=== PATIENT | female | born 1990 | race Caucasian/White ===

== ENCOUNTER 2025-04-30 08:10 | Outpatient (REF) | payer BC, SELFPAY ==
--- NOTE | 2025-04-30 08:16 | ECG_ITS ---
Test Reason : qtc check Blood Pressure : */* mmHG Vent. Rate : 88 BPM Atrial Rate : 88 BPM P-R Int : 126 ms QRS Dur : 86 ms QT Int : 346 ms P-R-T Axes : 70 77 41 degrees QTcB Int : 418 ms Normal sinus rhythm with sinus arrhythmia Normal ECG No previous ECGs available Referred By: Renetta Guadarrama Electronically Signed By: Adrian Daly
--- OUTSIDE RECORDS SUMMARY | 2025-04-30 08:24 | XMS_ITS | Encounter Summary ---
Author Organization [facility] Address [address] [facility] [address] [place] [address] Care Team Providers Care Qa Lead Name Role Phone Augusto Guillen DMD Primary Care Provider Unava ilable Augusto Guillen DMD Unavailable Unavailable Paras Garcia PA-C Primary Care Provider [phone] Encounter Details Date Type Department Care Team (Latest Contact Info) Description 12/24/2020 Abstract [facility] CONVERSION[facility] Dental, Provider, DDS Social History Tobacco Use Types Packs/Day Years Used Date Smoking Tobacco: Never Assessed Comments Unknown Sex and Gender Information Value Date Recorded Sex Assigned at Not on file Legal Sex Female 8:39 PM EST Gender Identity Other 05/27/2022 8:39 PM EST Sexual Orientation Bisexual 05/27/2022 8: 39 PM EST documented as of this encounter Plan of Treatment Not on file documented as of this encounter Visit Diagnoses Not on filedocumented in this encounter Care Teams Qa Lead Relationship Specialty Start Date End Date Augusto Guillen DMD PCP - General Dentist 05/13/22 06/13/22 Paras Garcia PA-C [address] [place] [id number] PCP - General Family Medicine 11/06/23 Augusto Guillen DMD Dentist 06/14/22 documented as of this encounter
--- OUTSIDE RECORDS SUMMARY | 2025-04-30 08:24 | XMS_ITS | Encounter Summary ---
Author Organization [facility] Address [address] [facility] [address] [place] [phone] Phone Care Team Providers Care Histologist Name Role Phone Cee Chang INCOME TAX ADMINISTRATOR Primary Care Provider Raquel Clancy DO Primary Care Provider [phone] [place] Raquel Viv DO Primary Care Provider [phone] AstonRaquel DO Unavailable [phone] Zoraida Bonilla CNP Primary Care Provider Encounter Details Date Type Department Care Team (Late st Contact Info) Description 01/09/2020 Transcribe Orders [facility] [address] [place] [address] [phone] Gianna Chung, DO [address] [place] [address] Social History Tobacco Use Types Packs/Day Years Used Date Smoking Tobacco: Never Assessed Comments Unknown Sex and Gender Information Value Date Recorded Sex Assigned at Female 09/27/2022 3:57 PM EDT Legal Sex X 08/21/2023 2:20 PM EST Gender Identity Non-binary 11/03/2023 8:47 AM EDT Sexual Orientation Queer 11/03/2023 8: 47 AM EDT documented as of this encounter Plan of Treatment Upcoming Encounters Date Type Department Care Team (Late st Contact Info) Description 05/19/2025 9:30 AM EST Telemedicine [facility] [address] [place] [phone] Zoraida Bonilla, [employer] [address] [place] [phone] documented as of this encounter Visit Diagnoses Not on filedocumented in this encounter Additional Health Concerns Infection Onset Date Last Indicated Resolved Time CoV-Risk 06/04/2020 06/05/2020 06/18/2020 1:24 AM EST documented as of this encounter Care Teams Histologist Relationship Specialty Start Date End Date Cee Chang NP [address] [employer] [place] [address] PCP - General Family Medicine 08/02/18 09/26/22 Raquel Clancy DO [address] [place] [phone] PCP - General Family Medicine 09/27/22 11/26/22 Raquel Clancy DO [address] [place] [phone] PCP - General Family Medicine 11/27/22 02/29/24 Zoraida Bonilla CNP [address] [place] [phone] [email or web address] PCP - General 03/01/24 Raquel Clancy DO [address] [place] [phone] Family Medicine 11/27/22 documented as of this encounter Additional Source Comments The information contained in this document represents components of the legal health record. It is not the complete legal health record.[facility]
--- OUTSIDE RECORDS SUMMARY | 2025-04-30 08:24 | XMS_ITS | Clinical Summary ---
Author Organization [employer] [facility] Address [address] [facility] [address] [place] [address] Care Team Providers Care Medical Front Desk Coordinator Name Role Phone MindyLoisberny DMD Unavailable Unavailable Paras Garcia PA-C Primary Care Provider [phone] Allergies Active Allergy Reactions Criticality Noted Date Comments Escitalopram 07/20/2022 Sexual side effects Willard 07/20/2022 Nausea, interfered with sleep Karl Flavoring Agent (Non-Screening) 07/20/2022 Sertraline Diarrhea 07/20/2022 Bupropion Anxiety Low 07/20/2022 Immunizations Immunization Administration Dates Next Due Influenza, IIV3, injectable 05/02/2021,1 ,03/31/2019,2017 Moderna Covid-19 Vaccine 12+ 06/04/2021,08/18/19 21,07/21/2020 Pfizer Covid-19 Vaccine 12+ Bivalent 03/28/2022 Tdap 10/23/2018 Social History Tobacco Use Types Packs/Day Years Used Date Smoking Tobacco: Never Assessed Comments Unknown Sex and Gender Information Value Date Recorded Sex Assigned at Not on file Legal Sex Female 8:39 PM EST Gender Identity Other 05/27/2022 8:39 PM EST Sexual Orientation Bisexual 05/27/2022 8: 39 PM EST Plan of Treatment Health Maintenance Due Date Last Done Comments Depression Screening 1991 Disability Screening 1991 Alcohol/Substance Use Screening 2003 Tobacco Screening 2003 Family Planning (PISQ) 12/16/2006 HPV Vaccines (1 - 3-dose series) 12/16/2006 Hepatitis B Vaccines (1 of 3 - 19+ 3-dose series) 12/16/2010 Pap Smear 12/16/2012 Cervical Cancer Screening 12/16/2021 HPV/Cotest 12/16/2021 COVID-19 Vaccine ( season) 2025 03/28/2022, 06/04/2021, 08/18/2020, Additional history exists Influenza Vaccine (#1) 2025 , 04/17/2020, 03/31/2019, Additional history exists DTaP/Tdap/Td Vaccines (2 - Td or Tdap) 10/23/2028 10/23/2018 Zoster Vaccines (1 of 2) 12/16/2041 RSV Patients and Patients Aged 60 years or older (1 - 1-dose 75+ series) 12/16/2066 HIB Vaccines Aged Out No longer eligi ble based on patient's age to complete this topic Hepatitis A Vaccines Aged Out No long er eligible based on patient's age to complete this topic IPV Vaccines Aged Out No longer eligi ble based on patient's age to complete this topic Meningococcal B Vaccine Aged Out No l onger eligible based on patient's age to complete this topic Meningococcal Vaccine Aged Out No marilu deepthi eligible based on patient's age to complete this topic Pneumococcal Vaccine: Pediatrics (0 to 5 Years) and At-Risk Patients (6 to 49) Years Aged Out No longer eligible based on patient's age to complete this topic RSV under 20 months Aged Out No longe r eligible based on patient's age to complete this topic Rotavirus Vaccines Aged Out No longer eligible based on patient's age to complete this topic Care Teams Medical Front Desk Coordinator Relationship Specialty Start Date End Date Paras Garcia PA-C [address] [place] [address] PCP - General Family Medicine 11/06/23 Augusto Guillen DMD Dentist 06/14/22
--- OUTSIDE RECORDS SUMMARY | 2025-04-30 08:24 | XMS_ITS | Encounter Summary ---
Author Organization [employer] [facility] Address [address] [facility] [address] [place] [address] Care Team Providers Care Drilling Manager Name Role Phone Augusto Guillen DMD Primary Care Provider Unava ilable Augusto Guillen DMD Unavailable Unavailable Paras Garcia PA-C Primary Care Provider [phone] Encounter Details Date Type Department Care Team (Latest Contact Info) Description 09/16/2019 Abstract [facility] CONVERSIONS Dental, Provider, DDS Social [...] on filedocumented in this encounter Care Teams Drilling Manager Relationship Specialty Start Date End Date Augusto Guillen DMD PCP - General Dentist 05/13/22 06/13/22 Paras Garcia PA-C [address] [place] [id number] PCP - General Family Medicine 11/06/23 Augusto Guillen DMD Dentist 06/14/22 documented as of this encounter
--- OUTSIDE RECORDS SUMMARY | 2025-04-30 08:25 | XMS_ITS | Clinical Summary ---
Author Organization [facility] Address [address] [facility] [address] [place] [phone] Phone Care Team Providers Care Operating System Designer Name Role Phone Raquel Clancy DO Unavailable [phone] Zoraida Bonilla CNP Primary Care Provider Allergies Active Allergy Reactions Criticality Noted Date Comments Karl Itching 07/21/2020 Medications SPRAVATO 84 mg (28 mg x 3) nasal spray 11/24/19 23 Active tiZANidine (ZANAFLEX) 2 MG tablet TAKE 1 TO 2 TABLETS BY MOUTH EVERY DAY AT BEDTIME NEEDED FOR NECK SPASM 180 tablet 1 11/06/19 25 Active atomoxetine (STRATTERA) 40 MG capsuleIndicatio ns:Attention deficit hyperactivity disorder (ADHD), predominantly inattentive type TAKE 1 CAPSULE (40 MG TOTAL) BY MOUTH DAILY. 90 capsule 01/17/20 25 Active JULIO, 28, 3-0.02 mg per tabletIndication s:Menstrual suppression TAKE 1 TABLET BY MOUTH EVERY MORNING. SKIP INACTIVE PILLS. 84 tablet 1 01/21/20 25 Active testosterone (ANDROGEL) 20.25 mg/1.25 gram (1.62 %) transdermal gel pumpIndications: Gender incongruence APPLY 1 PUMP DAILY DIRECTED 75 g 01/29/20 25 Active cimetidine (TAGAMET) 400 MG tabletIndication s:Gastroesophage al reflux disease, unspecified whether esophagitis present Take 0.5 tablets (200 mg total) by mouth 2 (two) times a day. 60 tablet 02/01/20 25 Active Additional Information Patient not taking.Reported on 04/18/2025 ARIPiprazole (ABILIFY) 5 MG tablet Take 1 tablet by mouth every morning. 04/15/20 Active traZODone (DESYREL) 100 MG tabletIndication s:Depression, unspecified depression type TAKE 1 TABLET BY MOUTH NIGHTLY AT BEDTIME. 90 tablet 04/25/20 25 Active traZODone (DESYREL) 100 MG tabletIndication s:Depression, unspecified depression type Take 1 tablet (100 mg total) by mouth nightly at bedtime. 90 tablet 1 09/04/19 25 2024 Discontinued nitrofurantoin (MACROBID) 100 MG capsule Take 1 capsule (100 mg total) by mouth 2 (two) times a day for 5 days. 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 Resolved Problems Problem Noted Date Diagnosed Date Resolved Date Increased risk for hereditary cancer syndrome 04/26/20 24 01/29/2025 Encounters Date Type Department Care Team Description 04/25/[address] [address] Zoraida Bonilla CNP Medication Refill 04/18/2025 11:50 AM EDT Office Visit [facility] at [address] [address] Sissy Caicedo PA-C Dysuria (Primary Dx); Urinary tract infection without hematuria, site unspecified 03/27/2025 2:30 PM EDT Nurse Only [address] [address] Need for prophylactic vaccination and inoculation against influenza (Primary Dx); Need for COVID-19 vaccine; Encounter for administration of vaccine 03/26/2025 12:26 PM EDT - 03/26/2025 11:59 PM EDT Hospital Encounter [facility], [address] [address] Claudia Santana MD Discharge Disposition: Home or Self Care 03/12/2025 2:21 PM EDT - 03/12/2025 11:59 PM EDT Hospital Encounter [facility] [address] [address] Vesta Beltran, Claudia Camp MD Discharge Disposition: Home or Self Care 03/12/2025 Orders Only [address] [address] Claudia Santana MD Lymphadenitis (Primary Dx); Enlarged lymph nodes 01/29/2025 3:51 PM EDT - 01/29/2025 11:59 PM EDT Hospital Encounter [facility] [address] [address] Zoraida Bonilla CNP Discharge Disposition: Home or Self Care 01/29/2025 9:00 AM EDT Office Visit [address] [address] Zoraida Bonilla CNP Annual physical exam (Primary Dx); Routine screening for STI (sexually transmitted infection); Gender dysphoria; Gastroesophageal reflux disease, unspecified whether esophagitis present 01/29/[address] [address] Zoraida Bonilla CNP Med Change Request from Last 3 Months Immunizations Immunization Administration Dates Next Due COVID-19 (Pre-05/08) Moderna Vaccine, mRNA, PF 06/04/2021,08/18/2020,07/21/2020 COVID-19 (Pre-05/08) Pfizer Vaccine, Bivalent 12+ 03/28/2022 COVID-19 Pfizer Comirnaty Vaccine 12+ 03/27/2025 ,03/29/2024,04/14/2023 COVID-19, Unspecified Formulation 03/28/2022,06/2022 DTaP 01/20/1997, 5,07/14/1992,1991,02/28/1992 Hepatitis B, unspecified formulation 08/11/1999, 03/05/1999,01/28/1999 Hib, unspecified formulation 07/14/1992,04/16/19 92,02/28/1992 INFLUENZA, SPLIT VIRUS, TRIVALENT PF 03/27/2025, 04/16/2024 IPV 01/20/1997, 2,04/16/1992,1991 Influenza Quadrivalent Prese rvative Free IM 05/22/2018 Influenza Quadrivalent w/ Preservative IM 04/17/2020,04/17/2020,03/31/2019 Influenza, Unspecified Formulation 05/02,04/17/2020,03/31/2019,2017 MMR 01/20/1997,12/06/1994 Tdap 10/23/2018 Family History Medical History Relation Comments Diabetes type I Brother Heart attack Brother Hyperlipidemia Brother Colon cancer Father over 50 polyps r emoved Hyperlipidemia Father Prostate cancer Father Breast cancer Maternal Aunt Stroke Maternal Grandfather Breast cancer Maternal Grandmother Relation Status Comments Brother Father Alive Maternal Aunt Maternal Grandfather Maternal Grandmother Social History Tobacco Use Types Packs/Day Years Used Date Smoking Tobacco: Never Smokeless Tobacco: Never Tobacco Cessation:Counseling Given: Not Answered Alcohol Use Standard Drinks/Week Comments Yes 0 (1 standard drink = 0.6 oz pur e alcohol) 1-2 x per month Child or Family Care Answer Date Record ed Do you have problems with on e of the following making it difficult for you to work, study, or receive health care? No 06/13/2024 Education Answer Date Recorded Are you interested in help w ith more adult education (for example, completing high school, GED, job training, learning the [place] language, technical skills, or developing parenting skills)? No 06/13/2024 Are you concerned about learning? Not on file 06/13/2024 No 06/13/2024 Yes 06/13/2024 Food Answer Date Recorded Within the past 6 months we worried whether our food would run out before we got money to buy more. Never True 06/13/2024 Within the past 6 months the food we bought just didn't last and we didn't have enough money to get more. Never True Residential Stability Answer Date Recor ded What is your housing situation today? I have jaquelin sing 06/13/2024 How many times have you move d in the past 12 months? Zero (I did not move) 06/13/2024 Paying for Meds Answer Date Recorded Do you have trouble paying for medicines? No 06/13/2024 Paying Utility Bills Answer Date Record ed Do you have trouble paying your heating or elect ricity bill? No 06/13/2024 Transportation Answer Date Recorded Has the lack of transportati on kept you from medical appointments or from getting medications? No 06/13/2024 Unemployment Answer Date Recorded Are you currently unemployed or working on a part-time or temporary basis, and looking for work? No 06/13/2024 Digital Access Answer Date Recorded No 06/13/2024 Yes 06/13/2024 Do you have reliable internet access at home? Ye s 06/13/2024 Do you have a device (e.g., phone, tablet, computer) with a working camera? Yes 06/13/2024 Intimate Partner Violence Answer Date R ecorded Are you denied basic needs s uch as food, clothing, or medical care? No 06/13/2024 In the past 12 months have y ou been in a relationship with a person who hurts, threatens, or tries to control you? No 06/13/2024 Are you denied basic needs s uch as food, clothing, or medical care? No 06/13/2024 In the past 12 months have y ou been in a relationship with a person who hurts, threatens, or tries to control you? No 06/13/2024 Comments Unknown Sex and Gender Information Value Date Recorded Sex Assigned at Female 09/27/2022 3:57 PM EDT Legal Sex X 08/21/2023 2:20 PM EST Gender Identity Non-binary 11/03/2023 8:47 AM EDT Sexual Orientation Queer 11/03/2023 8: 47 AM EDT Last Filed Vital Signs Vital Sign Reading Time Taken Comments Blood Pressure 111/70 04/18/2025 12:50 PM EDT Pulse 74 04/18/2025 12:50 PM EDT Temperature 37 C (98.6 F) 04/18/2025 12:50 PM EDT Respiratory Rate 16 04/18/2025 12:50 PM EDT Oxygen Saturation 100% 04/18/2025 12:50 PM EDT Inhaled Oxygen Concentration - - Weight 61.2 kg (135 lb) 04/18/2025 12:50 PM EDT Height 162.6 cm (5' 4 ) 04/18/2025 12:50 PM EDT Body Mass Index 23.17 04/18/2025 12:50 PM EDT Plan of Treatment Upcoming Encounters Date Type Department Care Team (Late st Contact Info) Description 05/19/2025 9:30 AM EST Telemedicine [facility] [address] [place] [address] Zoraida Bonilla, GUSTAVO [address] [place] [address] [email or web address] Maintenance Due Date Last Done Comments HEPATITIS A VACCINES (1 of 2 - Risk 2-dose series) 12/16/2010 DEPRESSION SCREENING 01/29/2026 01/29/2025, 01/30/20 25 PAP SMEAR 10/11/2028 Postponed from 12/16/2012 (Not Clinically Appropriate) Adult Td,Tdap Booster 10/23/2028 10/23/2018 HIB VACCINES Aged Out 07/14/1992, 07/1991, 02/28/1992 No longer eligible based on patient's age to complete this topic HEPATITIS C SCREENING Completed 01/29/2025, 025 HIV ONE-TIME SCREENING (18-65 YEARS) Completed 01/29/2025 COVID-19 VACCINE Completed 03/27/2025, , 04/14/2023, Additional history exists INFLUENZA VACCINE Completed 03/27/2025, , 05/02/2021, Additional history exists SMOKING STATUS SCREENING (Once After 26 Yrs) Completed 04/18/2025 MENINGOCOCCAL VACCINES (ACWY) Aged Out No longer eligible based on patient's age to complete this topic MENINGOCOCCAL VACCINES (B) Aged Out N o longer eligible based on patient's age to complete this topic PNEUMOCOCCAL VACCINES (0-49 years) Aged Out No longer eligible based on patient's age to complete this topic Medical Devices Not on file Procedures Procedure Name Priority Date/Time Associated Diagnosis Comments URINE CULTURE Routine 04/18/2025 1:43 PM EDT Dysuria POCT URINE DIPSTICK Routine 04/18/2025 1 1:58 AM EDT US SOFT TISSUES OF HEAD AND NECK (LYMPH NODE SURVEY) Routine 03/26/2025 12:57 PM EDT Enlarged lymph nodes CBC AND DIFFERENTIAL Routine 03/12/2025 2:22 PM EDT Lymphadenitis SYPHILIS ANTIBODY SCREEN ASSAY Routine 01/29/2025 3:52 PM EDT Routine screening for STI (sexually transmitted infection) TESTOSTERONE, TOTAL Routine 01/29/2025 3 :52 PM EDT Gender dysphoria CBC Routine 01/29/2025 3:52 PM EDT Gender dysphoria HIV-1/2 ANTIGEN/ANTIBODY Routine 01/29/2025 3:52 PM EDT Routine screening for STI (sexually transmitted infection) CHLAMYDIA TRACHOMATIS AND NEISSERIA GONORRHOEAE NUCLEIC ACID DETECTION Routine 01/29/2025 3:52 PM EDT Routine screening for STI (sexually transmitted infection) HEPATITIS C VIRAL LOAD (PCR) Routine 01/29/2025 3:52 PM EDT Routine screening for STI (sexually transmitted infection) from Last 3 Months Results * (ABNORMAL) Urine Culture (04/18/2025 1:43 PM EDT) Special Requests None 04/18/2025 1:43 PM EDT [facility] Urine Culture 10,000 to 100,000 colony forming units per mL MIXED RICHY (3 OR MORE COLONY TYPES) Culture indicates contamination . Please resubmit if necessary.(A) 04/20/2025 10:39 AM EDT [facility] Urine (Urine) 04/18/2025 1:4 3 PM EDT 04/18/2025 6:05 PM EDT us iSssy Caicedo PA-C MICROBIOLOGY - GENERAL FATOU MARTINEZ Final Result [facility] [address] [place], [place] [id number] * POCT Urine Dipstick (Automated) (04/18/2025 11:58 AM EDT) COLOR Yellow [facility] TURBIDITY Clear [facility] GLUCOSE, POCT Negative [facility] KETONE, POCT Negative [facility] OCCULT BLOOD, POCT Negative [facility] SPECIFIC GRAVITY, POCT 1.015 [facility] ALBUMIN, POCT Negative [facility] Bili Negative [facility] Urobilinogen 0.2 [facility] NITRITE, POCT Negative [facility] PH, POCT 7.0 [facility] WBC SCREEN, POCT Negative [employer] [facility] 04/18/2025 11:5 8 AM EDT 04/18/2025 12:00 PM EDT Sissy Caicedo PA-C POINT OF CARE TEST ORDERABL ES Final Result [facility] [address] [place] [address], [facility] [phone] * US Soft Tissues of Head and Neck (Lymph Node Survey) (03/26/2025 12:57 PM EDT) Anatomical Region Laterality Modality Neck, Head Ultrasound 03/26/2025 1:49 PM EDT Impressions 03/26/2025 1:50 PM EDT Small, benign-appearing lymph node in the region of clinical concern. Narrative 03/26/2025 1:50 PM EDT US SOFT TISSUES OF HEAD AND NECK (LYMPH NODE SURVEY) Referring clinician's provided indication for this examination in Epic: Lymphadenopathy, neck TECHNIQUE: Ultrasound soft tissue of the head and neck. COMPARISON: None FINDINGS: Superficial scanning was performed of the left neck palpable lump. Lymph Nodes: In the region of clinical concern, there is a small, morphologically benign-appearing lymph nodes measuring 1.4 x 0.3 x 0.8 cm. Other Findings: No mass or fluid collection. Procedure Note John Cordero MD - 03/26/2025 US SOFT TISSUES OF HEAD AND NECK (LYMPH NODE SURVEY) Referring clinician's provided indication for this examination in Epic:Lymphadenopathy, neck TECHNIQUE: Ultrasound soft tissue of the head and neck. COMPARISON: None FINDINGS: Superficial scanning was performed of the left neck palpable lump. Lymph Nodes: In the region of clinical concern, there is a small,morphologically benign-appearing lymph nodes measuring 1.4 x 0.3 x 0.8cm. Other Findings: No mass or fluid collection. IMPRESSION: Small, benign-appearing lymph node in the region of clinical concern. us Claudia Santana MD IMG US HEAD/NECK NON THYROI D Final Result * (ABNORMAL) CBC and differential (03/12/2025 2:22 PM EDT) WBC 9.12 4.00 - 11.00 K/uL [facility] RBC 4.51 4.50 - 5.20 M/uL [facility] Comment: NOTE: This patient has registered with Legal Sex X. Sex specific reference ranges and abnormal flags may not apply to these results. Further interpretation and clinical correlation required. Reference Ranges: Male 18Y+: 4.50-5.90 Female 18Y+: 4.00-5.20 HGB 14.0 13.5 - 16.0 g/dL [facility] Comment: NOTE: This patient has registered with Legal Sex X. Sex specific reference ranges and abnormal flags may not apply to these results. Further interpretation and clinical correlation required. Reference Ranges: Male 18Y+: 13.5-17.5 Female 18Y+: 12.0-16.0 HCT 40.6(L) 41.0 - 46.0 % [facility] Comment: NOTE: This patient has registered with Legal Sex X. Sex specific reference ranges and abnormal flags may not apply to these results. Further interpretation and clinical correlation required. Reference Ranges: Male 18Y+: 41.0-53.0 Female 18Y+: 36.0-46.0 PLT 291 150 - 450 K/uL [facility] MCV 90.0 80.0 - 100.0 fL [facility] MCH 31.0 27.0 - 31.0 pg [facility] MCHC 34.5 32.0 - 36.0 g/dL [facility] RDW 11.5 11.5 - 14.5 % [facility] MPV 10.7 8.4 - 12.0 fL [facility] NRBC 0.00 0.00 /100 WBCs [facility] ABSOLUTE NRBC 0.00 0.00 K/uL [facility] DIFF METHOD Auto [facility] NEUTS 68.1 48.0 - 76.0 % [facility] LYMPHS 26.2 18.0 - 41.0 % [facility] MONOS 4.8 4.0 - 11.0 % [facility] EOS 0.2 0.0 - 5.0 % [facility] BASOS 0.4 0.0 - 1.5 % [facility] Granulocytes, immature (%) 0.3 0.0 - 0.9 % [facility] ABSOLUTE NEUTS 6.20 1.92 - 7.60 K/uL [facility] ABSOLUTE LYMPHS 2.39 0.72 - 4.10 K/uL [facility] ABSOLUTE MONOS 0.44 0.16 - 1.10 K/uL [facility] ABSOLUTE EOS 0.02 0.00 - 0.50 K/uL [facility] ABSOLUTE BASOS 0.04 0.00 - 0.15 K/uL [facility] Granulocytes, immature 0.03 0.00 - 0.09 K/uL [facility] Blood 03/12/2025 2:22 PM EDT 03/12/2025 2:24 PM EDT us Claudia Santana MD LAB BLOOD ORDERABLES Final Result [facility] [address] [place] [address] * Chlamydia trachomatis and Neisseria gonorrhoeae Nucleic Acid Amplification (01/29/2025 3:52 PM EDT) [facility] CHLAMYDIA TRACHOMATIS Not Detected Not Detected [facility] NEISERIA GONORRHOEAE Not Detected Not Detected [facility] SPECIMEN TYPE URINE [facility] Urine (Urine) 01/29/2025 3:5 2 PM EDT 01/29/2025 4:07 PM EDT Zoraida Bonilla FUNCTIONAL MENTAL DISABILITY TEACHER NON CULTURE MICROBIOLO GY Final Result Performing Organization Address [facility]/ZIP Co de Phone Number [address] [address] * HIV-1/2 antigen/antibody (01/29/2025 3:52 PM EDT) [facility] HIV-1/2 Antigen/Antibo dy NON-REACTI VE [facility] Blood 01/29/2025 3:52 PM EDT 01/29/2025 4:01 PM EDT Zoraida Silvia Bonilla FUNCTIONAL MENTAL DISABILITY TEACHER LAB BLOOD ORDERABLES F inal Result Performing Organization Address [facility]/ZIP Co de Phone Number [address] [address] * Syphilis antibody screen (01/29/2025 3:52 PM EDT) [facility] RPR NON-REACTIV E NON-REACTI VE [facility] Blood 01/29/2025 3:52 PM EDT 01/29/2025 4:01 PM EDT Zoraida Silvia Bonilla FUNCTIONAL MENTAL DISABILITY TEACHER LAB BLOOD ORDERABLES F inal Result Performing Organization Address [facility] Co de Phone Number [address] [address] * Hepatitis C viral load (PCR) (01/29/2025 3:52 PM EDT) [facility] HCV RNA DETECT/QNT Undetected Undetected IU/mL [place] [facility] Comment: (NOTE) Result in log IU/mL is Undetected. ADDITIONAL INFORMATION The quantification range of this assay is 15 to 100,000,000 IU/mL (1.18 log to 8.00 log IU/mL). Testing was performed using the chun HCV test ([employer] Blood (Blood) 01/29/2025 3:5 2 PM EDT 01/29/2025 4:01 PM EDT us Zoraida Silvia Bonilla FUNCTIONAL MENTAL DISABILITY TEACHER NON CULTURE MICROBIOLO GY Final Result [facility] [facility] [address] [place] [address] * (ABNORMAL) CBC (01/29/2025 3:52 PM EDT) WBC 8.61 4.00 - 11.00 K/uL [facility] RBC 4.63 4.50 - 5.20 M/uL [facility] Comment: NOTE: This patient has registered with Legal Sex X. Sex specific reference ranges and abnormal flags may not apply to these results. Further interpretation and clinical correlation required. Reference Ranges: Male 18Y+: 4.50-5.90 Female 18Y+: 4.00-5.20 HGB 14.5 13.5 - 16.0 g/dL [facility] Comment: NOTE: This patient has registered with Legal Sex X. Sex specific reference ranges and abnormal flags may not apply to these results. Further interpretation and clinical correlation required. Reference Ranges: Male 18Y+: 13.5-17.5 Female 18Y+: 12.0-16.0 HCT 41.7 41.0 - 46.0 % [facility] Comment: NOTE: This patient has registered with Legal Sex X. Sex specific reference ranges and abnormal flags may not apply to these results. Further interpretation and clinical correlation required. Reference Ranges: Male 18Y+: 41.0-53.0 Female 18Y+: 36.0-46.0 PLT 279 150 - 450 K/uL [facility] MCV 90.1 80.0 - 100.0 fL [facility] MCH 31.3(H) 27.0 - 31.0 pg [facility] MCHC 34.8 32.0 - 36.0 g/dL [facility] RDW 11.6 11.5 - 14.5 % [facility] MPV 10.3 8.4 - 12.0 fL [facility] NRBC 0.00 0.00 /100 WBCs [facility] ABSOLUTE NRBC 0.00 0.00 K/uL [facility] Blood 01/29/2025 3:52 PM EDT 01/29/2025 4:01 PM EDT Zoraida Bonilla [facility] LAB BLOOD ORDERABLES F inal Result Performing Organization Address [facility]/ZIP Co de Phone Number [address] [address] * Testosterone, total (01/29/2025 3:52 PM EDT) TESTOSTERONE 373 ng/dL [facility] Comment: NOTE: This patient has registered with Legal Sex X. Sex specific reference ranges and abnormal flags may not apply to these results. Further interpretation and clinical correlation required. Interpretation: FEMALE:<50 Interpretation: MALE:[phone] Blood 01/29/2025 3:52 PM EDT 01/29/2025 4:01 PM EDT Zoraida Bonilla [facility] LAB BLOOD ORDERABLES F inal Result [address] [address] from Last 3 Months [facility] [place] [address] [place] [address] [address] [place] [address] [address] [place] [address] [address] [place] [address] PPO EPO [facility]PO [facility] [place] [address] [place] [address] [place] [address] [place] [address] [facility] Care Teams Operating System Designer Relationship Specialty Start Date End Date Zoraida Bonilla CNP [address] [place] [id number] PCP - General 03/01/24 Raquel Clancy DO [address] [place] [id number] Family Medicine 11/27/22 Additional Source Comments The information contained in this document represents components of the legal health record. It is not the complete legal health record.[facility]
--- OUTSIDE RECORDS SUMMARY | 2025-04-30 08:25 | XMS_ITS | Encounter Summary ---
Author Organization [facility] Address [address] [facility] [address] [place] [phone] Phone Care Team Providers Care General Sales Manager Name Role Phone AstonRaquel Primary Care Provider [phone] AstonRaquel DO Primary Care Provider [phone] Raquel Clancy DO Unavailable [phone] Zoraida Bonilla CNP Primary Care Provider Encounter Details Date Type Department Care Team (Late st Contact Info) Description 09/27/2022 Procedure Pass [facility], Ct Scan - [address] [id number] Social History Tobacco Use Types Packs/Day Years Used Date Smoking Tobacco: Never Smokeless Tobacco: Never Alcohol Use Standard Drinks/Week Comments Never 0 (1 standard drink = 0.6 oz pur e alcohol) Comments Unknown Sex and Gender Information Value Date Recorded Sex Assigned at Female 09/27/2022 3:57 PM EDT Legal Sex X 08/21/2023 2:20 PM EST Gender Identity Non-binary 11/03/2023 8:47 AM EDT Sexual Orientation Queer 11/03/2023 8: 47 AM EDT documented as of this encounter Functional Status * Calculated C-SSRS Risk Score (Lifetime/Recent) Answer Date of Assessment Author No Risk Indicated 09/27/2022 3:57 PM EDT Kiarra Ortiz, RN * [place] Suicide Severity Rating Scale (Screener/Recent Self-Report) Question Answer Date of Assessment Author 1. Wish to be (Past 1 Month) No 09/27/2022 3:57 PM EDT Ilda Thompson RN 2. Non-Specific Active Suicidal Thoughts (Past 1 Month) No 09/27/2022 3:57 PM EDT Ilda Thompson RN 6. Suicidal Behavior (Lifetime) No 09/27/2022 3:57 PM EDT Ilda Thompson RN documented as of this encounter Plan of Treatment Upcoming Encounters Date Type Department Care Team (Late st Contact Info) Description 05/19/2025 9:30 AM EST Telemedicine [facility] [address] [place] [address] Zoraida Bonilla CNP [address] [place] [phone] [email or web address] documented as of this encounter Visit Diagnoses Not on filedocumented in this encounter Care Teams General Sales Manager Relationship Specialty Start Date End Date Raquel Clancy DO [address] [place] [address] PCP - General Family Medicine 09/27/22 11/26/22 Raquel Clancy DO [address] [place] [id number] PCP - General Family Medicine 11/27/22 02/29/24 Zoraida Bonilla CNP [address] [place] [id number] PCP - General 03/01/24 Raquel Clancy DO [address] [place] [address] Family Medicine 11/27/22 documented as of this encounter Additional Source Comments The information contained in this document represents components of the legal health record. It is not the complete legal health record.[facility]
--- OUTSIDE RECORDS SUMMARY | 2025-04-30 08:26 | XMS_ITS | Encounter Summary ---
Author Organization [facility] Address [address] [employer] [facility] [address] [place] [phone] Phone Care Team Providers Care Watch Parts Inspector Name Role Phone Raquel Clancy DO Unavailable [phone] Zoraida Bonilla CNP Primary Care Provider Reason for Visit * Reason Comments Medication Refill Encounter Details Date Type Department Care Team ([facility] st Contact Info) Description 04/25/2025 Refill [facility] [address] [place], [place] [id number] Zoraida Bonilla CNP [address] [place], [place] [phone] [email or web address] Medication Refill Social History Tobacco Use Types Packs/Day Years Used Date Smoking Tobacco: Never Smokeless Tobacco: Never Alcohol Use Standard Drinks/Week Comments Yes 0 [...] high school, GED, job training, learning the [place] language, technical skills, or developing parenting skills)? [...] your housing situation today? I have jaquelin vargas 06/13/2024 How many times have you move [...] 05/19/2025 9:30 AM EST Telemedicine [facility] [address] [place] [address] Zoraida Bonilla CNP [address] [place] [address] [email or web address] documented as of this encounter Visit Diagnoses Diagnosis Depression, unspecified depression type documented in this encounter Additional Health Concerns Assessment Noted Time PHQ-9 Depression Total Score: 7 01/30/20 9:58 AM EDT PHQ-2 Depression Total Score: 2 01/30/20 9:58 AM EDT documented as of this encounter Care Teams Watch Parts Inspector Relationship Specialty Start Date End Date Zoraida Bonilla CNP [address] [place] [address] [email or web address] PCP - General 03/01/24 Raquel Clancy DO [address] [place] [phone] Family Medicine 11/27/22 documented as of this encounter Additional Source Comments The information contained in this document represents components of the legal health record. It is not the complete legal health record.[facility]
[2025-04-30 08:43] LABS: MANUAL DIFF FLAG NO
[2025-04-30 09:22] LABS: Hematocrit 40.4 %; Hemoglobin 13.5 g/dl; Imm Gran Abs Auto 0.02 X10*3/uL (0.00-0.03); Imm Gran Pct Auto 0.4 % (0.0-0.4); Lymphocytes Absolute Auto 1.8 X10*3/uL; Mean Corpuscular HGB Conc 33.4 g/dl; Mean Corpuscular Hemoglobin 30.3 pg; Mean Corpuscular Volume 90.8 fL; NRBC Abs Auto 0.000 X10*3/uL (0.0-0.012); NRBC Pct Auto 0.0 /100WBC (0.0-0.2); Platelet Count 272 X10*3/uL; Red Blood Count 4.45 X10*6/uL; White Blood Count 5.2 X10*3/uL
[2025-04-30 10:33] LABS: Alanine Aminotransferase 15 U/L; Albumin Level 4.5 g/dL; Alkaline Phosphatase 44 U/L; Anion Gap 12; Aspartate Amino Transferase 26 U/L; Blood Urea Nitrogen 11 mg/dL; Calcium 9.5 mg/dL; Carbon Dioxide 26 mmol/L; Chloride 106 mmol/L; Cholesterol 257 mg/dL; Estimated Glomerular Filt Rate > 60; HDL Cholesterol 95 mg/dL; Iron 94 mcg/dL; Magnesium 1.9 mg/dL; Percent Iron Saturation 31 %; Potassium 4.1 mmol/L; Sodium 140 mmol/L; Total Iron Binding Capacity 308 mcg/dL; Total Protein 7.0 g/dL; Triglycerides 97 mg/dL; Unsaturated Iron Binding 214 ug/dL
[2025-04-30 10:38] LABS: Free T4 (Free Thyroxine) 0.96 ng/dL; Thyroid Stimulating Hormone 2.41 uIU/mL
[2025-04-30 10:51] LABS: Folate 9.1 ng/mL; Vitamin B12 214 pg/mL
== END 2025-04-30 08:11 | disposition home or self-care (01) ==
LOC: HO.LAB 08:10
PROVIDERS: Visit Provider Psychiatry & Neurology Psychiatry
DX: F41.1 Generalized anxiety disorder (principal); F39 Unspecified mood [affective] disorder; F90.9 Attention-deficit hyperactivity disorder, unspecified type; R94.31 Abnormal electrocardiogram [ECG] [EKG]; Z13.6 Encounter for screening for cardiovascular disorders; Z13.21 Encounter for screening for nutritional disorder; Z13.1 Encounter for screening for diabetes mellitus; Z13.0 Encounter for screening for diseases of the blood and blood-forming organs and certain disorders involving the immune mechanism
CPT/HCPCS: 36415; 80053; 80061; 82306; 82607; 82746; 83036; 83090; 83540; 83735; 83921; 84207; 84425; 84439; 84443; 85025; 85652; 93005

== ENCOUNTER → 2025-04-30 08:16 | Outpatient (BNV) | payer BC, SELFPAY | PROVIDERS: Visit Provider Internal Medicine Cardiovascular Disease | DX: Z13.6 Encounter for screening for cardiovascular disorders (principal) | CPT/HCPCS: 93010 ==

== ENCOUNTER → 2025-05-09 11:30 | Outpatient (BNV) | payer BC, SELFPAY | PROVIDERS: Visit Provider Psychiatry & Neurology Psychiatry | DX: F33.2 Major depressive disorder, recurrent severe without psychotic features (principal); F41.3 Other mixed anxiety disorders; F90.9 Attention-deficit hyperactivity disorder, unspecified type | CPT/HCPCS: 99214 ==

== ENCOUNTER 2025-05-15 11:15 | Outpatient (RCR) | payer BC, SELFPAY ==
[2025-04-25 11:06] VITALS: BP 120/68; PULSE 64; TEMP 36.8; BMI 23.5
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
--- NOTE | 2025-05-01 14:13 | HO.PHP ---
Clients case was opened and reviewed in teams.
--- NOTE | 2025-05-07 16:30 | HO.PHPPROGNO ---
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 Patient remains pleasant, polite and appropriate in groups and at program. Despite setbacks feels they are managing stress a little better than expected. Feels better able to tolerate and manage stressors on Concerta. Maybe it is for the best.. was a difficult work environment . Says she is looking into other jobs. Emotions better with ABilify at 2.5 mg. Will continue to work toward 3.5 and possibly 5 mg if needed Denies any SI for past few days depsite events. WIll start on B12 for deficiency Trazodone not well tolerated, has picked up the gabapentin but hadnt started on this but plans to tongiht. Continues on Spravato. Medication Compliance: Yes Side effects from medications: No Attending Groups: Yes Review of Systems Acute medical concerns: No Medical Review of Systems: unchanged Mental Status Exam Mental Status Exam Narrative: Alert, oriented, in no acute distress. Calm, cooperative, more engaging. No psychomotor agitation or neurovegetative retardation. Eye contact maintained. Mood less depressed, affect variable, brighter. Speech normal. Thought process linear, coherent. Thought content related to stressors, more future-oriented, denies hopelessness, denies SI or HI. No paranoia or delusional content elicited. No evidence of psychosis. Insight and judgment - fair but adequate. Diagnostics Vital Signs (24Hr): BMI result Body Mass Index 23.5 Assessment & Plan Assessment & Plan (1) MDD (major depressive disorder), recurrent severe, without psychosis: Status: Acute Code(s): F33.2 - Major depressive disorder, recurrent severe without psychotic features (2) Other mixed anxiety disorders: Status: Acute Code(s): F41.3 - Other mixed anxiety disorders (3) Attention-deficit hyperactivity disorder, unspecified type: Status: Acute Code(s): F90.9 - Attention-deficit hyperactivity disorder, unspecified type Plan continue PHP increase Abilify to 3.5 mg qd start guanfacine ER 1 mg qd in am continue Concerta 18 mg qam (prev dose 27 mg) off atemoxetine switching off trazodone and onto gabapentin for sleep, at 100-200 mg to start continue regular medications for now Routine lab work reviewed w patient - B12 deficiency level 214, will start B12 supplements 1000 mcg daily EKG, routine reviewed normal QTc, no abnormal findings Continue to monitor Patient educated on: diagnosis and medication risk/benefits Informed Consent: understands Reason for contiued partial hosp. stay Substantial Risk for: med/psych decompensation Certification I certify that partial hospital treatment is medically necessary due to the symptoms and problems resulting from the patient's mental illness and the failure to treat the patient at the partial hospital level of care would likely result in the patient requiring inpatient psychiatric care which could not be prevented at a less intensive level of care. Total time managing care of this patient today __30__ minutes. Discharge Plan Discharge Attending provider: Renetta Guadarrama Medications: New gabapentin 300 mg capsule 300 mg PO BEDTIME Qty: 30 0RF cyanocobalamin (vitamin B-12) 1,000 mcg capsule 1,000 mcg PO DAILY Qty: 30 1RF Continued cholecalciferol (vitamin D3) [Vitamin D3] 25 mcg (1,000 unit) Capsule 25 mcg PO DAILY omeprazole magnesium [Prilosec OTC] 20 mg Tablet,Delayed Release (Dr/Ec) 20 mg PO DAILY drospirenone-ethinyl estradiol [Catie (28)] 3-0.02 mg tablet 1 tab PO DAILY testosterone 20.25 mg/1.25 gram (1.62 %) gel in metered-dose pump 1 pump topical DAILY Spravato 84 mg (28 mg x 3) [place],Non-Aerosol See Rx Instructions .ROUTE .COMPLEX Rx Instructions: Q 2 weeks. Patient reports she goes to a clinic who administers this to them. methylphenidate HCl [Concerta] 18 mg tablet extended release 24hr 18 mg PO QAM Qty: 30 0RF Rx Instructions: Partial Fill upon patient request. For ADHD aripiprazole 2 mg tablet 2 mg PO BEDTIME Qty: 30 0RF Changed gabapentin 100 mg capsule 100 mg PO BID PRN (Reason: anxiety, sleep) Qty: 30 0RF guanfacine 1 mg tablet extended release 24 hr 1 mg PO DAILY PRN (Reason: anxiety) Qty: 14 0RF aripiprazole [Abilify] 5 mg Tablet 5 mg PO QAM Qty: 30 0RF Discontinued trazodone 100 mg tablet 100 mg PO BEDTIME atomoxetine 25 mg Capsule 25 mg PO DAILY Patient Education: ADHD in Adults (ED), ADHD in Adults (DC), Depression (DC), Anxiety (ED) Print Language: [place]
--- NOTE | 2025-05-09 13:20 | P.PNPSP_ITS ---
Subjective Subjective Date of Service: 05/09/25 Reason For Visit: MDD Interim History: Patient reports issues with medication changes. Started gabapentin at 100 mg at night Wed night, not effective. Increase to 200 mg last night. Less delay falling asleep, but was unable to stay asleep last night. More disrupted sleep than usual. Slept 4 hours. Started on COncerta 18 mg (was previously at 27 mg) . Is able to focus better but noticed more internal agitation, racing thoughts in the afternoon, mild but transient irritabilility. Denies SI, HI, AVH. Simultaneoulsy bumped up on Abliify. Although feels ABilify has been helpful and has thus far tolerated gentle titration, so is unclear which medicaiton causing issues. She david admits not eating lunch well here and is possible she is not eating adequately to tolerate the stimulant. She will plan to eat more at breakfast and will bring a lunch here to [facility] eating. Will increase gabapentin to 300 mg qhs but can take 25 mg trazodone after 2 hours if unable to sleep. WIll seek an extension for medication complications. Medication Compliance: Yes Side effects from medications: Yes (as noted) Attending Groups: Yes Review of Systems Acute medical concerns: No Mental Status Exam Mental Status Exam Narrative: Alert, oriented, in no acute distress. Calm, cooperative, engaged. Eye contact maintained. Mood anxious, irritable. affect anxious. Speech normal. Thought process linear, coherent. Thought content related to stressors, denies SI or HI. No paranoia or delusional content elicited. No evidence of psychosis. Insight and judgment - fair but adequate. Diagnostics Vital Signs (24Hr): BMI result Body Mass Index 23.5 Assessment & Plan Assessment & Plan (1) MDD (major depressive disorder), recurrent severe, without psychosis: Status: Acute Code(s): F33.2 - Major depressive disorder, recurrent severe without psychotic features (2) Other mixed anxiety disorders: Status: Acute Code(s): F41.3 - Other mixed anxiety disorders (3) Attention-deficit hyperactivity disorder, unspecified type: Status: Acute Code(s): F90.9 - Attention-deficit hyperactivity disorder, unspecified type Plan extend PHP continue Abilify 3.5 mg qd continue guanfacine ER 1 mg qd in continue Concerta 18 mg qam (prev dose 27 mg) will consider switching to short acting MPH if ER contributing to sleep issues off atemoxetine increase gabapentin to 300 mg qhs may take trazodone 25 mg qhs prn sleep for now as we titrate gabapentin continue regular medications Routine lab work as indicated EKG, routine for baseline QTc for medication considerations as indicated UDS as indicated MassPat reviewed Continue to monitor Patient educated on: diagnosis and medication risk/benefits Informed Consent: understands Reason for contiued partial hosp. stay Substantial Risk for: med/psych decompensation Certification I certify that partial hospital treatment is medically necessary due to the sy mptoms and problems resulting from the patient's mental illness and the failure to treat the patient at the partial hospital level of care would likely result in the patient requiring inpatient psychiatric care which could not be prevented at a less intensive level of care. Total time managing care of this patient today __30__ minutes. Discharge Plan Discharge Attending provider: Renetta Guadarrama Medications: New gabapentin 100 mg capsule 100 mg PO TID Qty: 30 0RF methylphenidate HCl [Concerta] 18 mg tablet extended release 24hr 18 mg PO QAM Qty: 14 0RF Rx Instructions: Partial Fill upon patient request. For ADHD aripiprazole 2 mg tablet 2 mg PO BEDTIME Qty: 30 0RF guanfacine 1 mg tablet extended release 24 hr 1 mg PO DAILY Qty: 14 0RF No Action trazodone 100 mg tablet 100 mg PO BEDTIME cholecalciferol (vitamin D3) [Vitamin D3] 25 mcg (1,000 unit) Capsule 25 mcg PO DAILY atomoxetine 25 mg Capsule 25 mg PO DAILY aripiprazole [Abilify] 5 mg Tablet 2.5 mg PO BEDTIME Rx Instructions: Patient prescribed 5 mg daily however she spoke to her prescriber and her prescriber reduced the dose to 2.5 mg as she has an issue regarding metabolizing this medication. omeprazole magnesium [Prilosec OTC] 20 mg Tablet,Delayed Release (Dr/Ec) 20 mg PO DAILY drospirenone-ethinyl estradiol [Catie (28)] 3-0.02 mg tablet 1 tab PO DAILY testosterone 20.25 mg/1.25 gram (1.62 %) gel in metered-dose pump 1 pump topical DAILY Spravato 84 mg (28 mg x 3) [place],Non-Aerosol See Rx Instructions .ROUTE .COMPLEX Rx Instructions: Q 2 weeks. Patient reports she goes to a clinic who administers this to them. Print Language: Ethiopian
--- NOTE | 2025-05-15 15:30 | P.PNPSP_ITS ---
Subjective Subjective Date of Service: 05/14/25 Reason For Visit: MDD Interim History: Patient seen for follow-up, anticipating discharge at the end of program today.? Regarding her stay at [facility]: I think it's been useful She has started back on Concerta and is findings that 18 mg is working well for her (her previous dose had been 27 mg, although she has been off the medications for a while. Feels she is doing well with Abilify, more stable, feels it works well for her. Currently at 3.5 mg qd (split 2.5 in AM/1 mg PM) and may take PRN 1 or 2.5 mg dose particularly around her menses, per patient preference. Reports no acute issues or concerns. Medication compliant, medications well- tolerated. Denies any adverse effects.? Mood is stable.? Denies any hopelessness or SI. Denies thoughts of harming self or others at this time. Denies any aggressive ideation or HI. Denies any paran oia or AH or VH. Sleep, appetite, energy stable. Mental Status Exam Mental Status Exam Narrative: Alert, oriented, in no acute distress. Calm, cooperative. Mood stable, affect appropriate. Speech normal. Thought process linear, coherent, more goal- directed. Thought content related to stressors, future-oriented, denies any helplessness, hopelessness or SI.? No aggressive ideation or HI. No paranoia or delusional content elicited. No evidence of psychosis. Insight and judgment fair-good. Diagnostics Vital Signs (24Hr): BMI result Body Mass Index 23.5 Assessment & Plan Assessment & Plan (1) MDD (major depressive disorder), recurrent severe, without psychosis: Status: Acute Code(s): F33.2 - Major depressive disorder, recurrent severe without psychotic features (2) Other mixed anxiety disorders: Status: Acute Code(s): F41.3 - Other mixed anxiety disorders (3) Attention-deficit hyperactivity disorder, unspecified type: Status: Acute Code(s): F90.9 - Attention-deficit hyperactivity disorder, unspecified type Plan Discharge from [facility] Continue regular medications? Refills sent to pharmacy Will defer further medication management to outpatient provider *Safety plan reviewed *Discharge diagnoses, treatment course, discharge plan have been reviewed with patient (including medication regime, medication management, potential side effects) as well as treatment rationale were also revisited *Discharge paperwork signed and given to patient, copy sent for scanning to chart Patient educated on: diagnosis and medication risk/benefits Informed Consent: understands Reason for contiued partial hosp. stay Substantial Risk for: stable for discharge Certification I certify that partial hospital treatment is medically necessary due to the symptoms and problems resulting from the patient's mental illness and the failure to treat the patient at the partial hospital level of care would likely result in the patient requiring inpatient psychiatric care which could not be prevented at a less intensive level of care. Total time managing care of this patient today __30__ minutes. Discharge Plan Discharge Attending provider: Renetta Guadarrama Medications: New gabapentin 300 mg capsule 300 mg PO BEDTIME Qty: 30 0RF cyanocobalamin (vitamin B-12) 1,000 mcg capsule 1,000 mcg PO DAILY Qty: 30 1RF Continued cholecalciferol (vitamin D3) [Vitamin D3] 25 mcg (1,000 unit) Capsule 25 mcg PO DAILY omeprazole magnesium [Prilosec OTC] 20 mg Tablet,Delayed Release (Dr/Ec) 20 mg PO DAILY drospirenone-ethinyl estradiol [Catie (28)] 3-0.02 mg tablet 1 tab PO DAILY testosterone 20.25 mg/1.25 gram (1.62 %) gel in metered-dose pump 1 pump topical DAILY Spravato 84 mg (28 mg x 3) Mozelle,Non-Aerosol See Rx Instructions .ROUTE .COMPLEX Rx Instructions: Q 2 weeks. Patient reports she goes to a clinic who administers this to them. methylphenidate HCl [Concerta] 18 mg tablet extended release 24hr 18 mg PO QAM Qty: 30 0RF Rx Instructions: Partial Fill upon patient request. For ADHD aripiprazole 2 mg tablet 2 mg PO BEDTIME Qty: 30 0RF Changed gabapentin 100 mg capsule 100 mg PO BID PRN (Reason: anxiety, sleep) Qty: 30 0RF guanfacine 1 mg tablet extended release 24 hr 1 mg PO DAILY PRN (Reason: anxiety) Qty: 14 0RF aripiprazole [Abilify] 5 mg Tablet 5 mg PO QAM Qty: 30 0RF Discontinued trazodone 100 mg tablet 100 mg PO BEDTIME atomoxetine 25 mg Capsule 25 mg PO DAILY Patient Education: ADHD in Adults (ED), ADHD in Adults (DC), Depression (DC), Anxiety (ED) Print Language: Macedonian
== END 2025-05-15 23:59 | disposition home or self-care (01) ==
LOC: HO.PHPA 11:15
PROVIDERS: Visit Provider Psychiatry & Neurology Psychiatry
DX: F33.2 Major depressive disorder, recurrent severe without psychotic features (principal); F41.3 Other mixed anxiety disorders; F90.9 Attention-deficit hyperactivity disorder, unspecified type; Z79.899 Other long term (current) drug therapy
CPT/HCPCS: 90791; 90853

== ENCOUNTER 2025-06-26 07:46 | Outpatient (AMB) | payer OTHER, SELFPAY ==
--- NOTE | 2025-06-26 07:49 | A.OFFPC_ITS ---
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 Medication List - Last Reconciled 06/26/25 by Guero Sebastian MD aripiprazole 2 mg PO BEDTIME cholecalciferol (vitamin D3) (Vitamin D3) 25 mcg PO DAILY cyanocobalamin (vitamin B-12) 1,000 mcg PO DAILY drospirenone-ethinyl estradiol 3-0.02 mg (Catie (28)) 1 tab PO DAILY esketamine (Spravato) Q 2 weeks. Patient reports she goes to a clinic who administers this to them. gabapentin 300 mg PO BEDTIME methylphenidate HCl ER (Concerta) 18 mg PO QAM omeprazole magnesium (Prilosec OTC) 20 mg PO DAILY testosterone 1 pump topical DAILY tizanidine 2 - 4 mg PO BEDTIME PRN Tobacco use date assessed: 06/26/25 Dental Screening Dental Screen Date: 06/26/25 Did you have a dental visit in the last 12 months?: Yes Did you have a dental problem in the last 6 months where you did not have access to dental care?: No Was dental information given to patient?: Patient has dentist HPI HPI Comments History of Present Illness Details The patient is a 34 year old non binary individual presenting for a new patient visit to establish primary care. Their last visit with a primary care provider was about three months ago, and she is changing providers due to a change in insurance. The patient has a history of depression and ADHD. She was recently in a partial hospitalization program in April for her psychiatric conditions and reports her mood has been good since medication adjustments were made there. She has a psychiatrist but may need to find a new one due to insurance issues. The patient had a mastectomy in 2014. She has a family history of colon cancer in her father, who was diagnosed in his 40s, prompting her to have a colonoscopy in late 2023, with a recommended follow-up in five years. Her brother had a myocardial infarction at age 35. Regarding health maintenance, her last Pap smear with HPV testing was two years ago, placing her on a five-year screening interval. Lab work from April 2024 showed a total cholesterol of 257 mg/dL and LDL of 143 mg/dL, which are concerns for the patient due to her family history. Medical History: - ADHD - Depression - History of partial psychiatric hospita lization in April - Anxiety - Insomnia - Neck spasms - Hypercholesterolemia - Allergy to nikki Surgical History: - Mastectomy in 2014 Medications: - Aripiprazole 2 mg daily for depression - Spravato (esketamine) every other week for depression - Gabapentin 300 mg for anxiety and slee p - Concerta 18 mg every morning for ADHD - Tizanidine 2-4 mg as needed for sleep and neck spasms - Testosterone pump, 1 pump (20.25 mg) d aily - Drospirenone/ethinyl estradiol (MARY 2 8) taken continuously for control and to stop menses Family History: - Brother had a myocardial infarction at age 35, noted to have elevated lipoprotein (a). - Father had colon cancer in his 40s. - Denies family history of sudden cardia c . - Denies family history of diabetes. Diagnostic Results: - Laboratory studies (April): Total ch olesterol 257 mg/dL, LDL 143 mg/dL. Thyroid and vitamin D levels were normal. - Procedures: Colonoscopy in late 2023; results pending request. - Screening: Pap smear with HPV testing two years ago was normal. 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 1. Little interest or pleasure in doing things: several days 2. Feeling down, depressed, or hopeless: several days 3. Trouble falling or staying asleep, or sleeping too much: not at all 4. Feeling tired or having little energy: not at all 5. Poor appetite or overeating: not at all 6. Feeling bad about yourself - or that you are a failure or have let yourself or your family down: several days 7. Trouble concentrating on things, such as reading the newspaper or watching television: not at all 8. Moving or speaking so slowly that other people could have noticed. Or the opposite - being so fidgety or restless that you have been moving around a lot more than usual: not at all 9. Thoughts that you would be better off or of hurting yourself in some way: not at all Total score: 3 Depression Screening Interpretation: Negative Depression Screening Done: Yes 43666 - PHQ-9 Billing: Yes Source: Developed by Drs. Juan Toledo, Laurel Ac, Cal Tran and colleagues, with an educational blake from [employer]. Thrive Questionnaire Date Thrive assessed: 06/26/25 I am a: Patient What is your living situation today?: I have a steady place to live Within the past 12 months, did the food you bought not last and you didn't have the money to get more?: Never true Within the past 12 months, did you worry whether your food would run out before you got money to buy more?: Never true Do you have trouble paying for medicines?: No Do you have trouble getting transportation to medical appointments?: No Do you have trouble paying your heating and electricity bill?: No Do you have trouble taking care of your child, family member or friend?: No Do you have trouble with day-to-day activities such as bathing, preparing meals, shopping, managing finances, etc.?: No Are you currently unemployed and looking for a job?: No Are you interested in more education?: No THRIVE Score: 0 AUDIT C Alcohol Use Questionnaire (AUDIT-C) 1. How often do you have a drink containing alcohol?: Monthly or less 2. How many drinks containing alcohol do you have on a typical day when you are drinking?: 1 or 2 3. How often do you have six or more drinks on one occasion?: Never Total Score: 1 Score Reviewed/Action Taken: Yes ABRAN-7 AMB Questionnaire ABRAN-7 Date ABRAN - 7 assessed: 06/26/25 Feeling nervous, anxious, or on edge: 2 = More than half the days Not being able to stop or control worryin = Several days Worrying too much about different things: 1 = Several days Trouble relaxin = Several days Being so restless that it is hard to sit still: 1 = Several days Becoming easily annoyed or irritable: 0 = Not at all Feeling afraid as if something awful might happen: 0 = Not at all Total ABRAN-7 score (0-4 normal; 5-9 mild; 10-14 moderate; 15-21 severe): 6 Source: Developed by Drs. Juan Toledo, Laurel Ac, Cal Tran and colleagues, with an educational blake from [employer]. ABRAN-7 Assessment Billing ABRAN-7 Assessment Tool: ABRAN-7 Assessment 30049 Physical exam (Primary Care) Vital Signs: Last Vital Signs Temp 98.0 F 06/26/25 07:54 Pulse 89 06/26/25 07:54 Resp 18 06/26/25 07:54 BP 118/54 L 06/26/25 07:54 Pulse Ox 98 06/26/25 07:54 Oxygen Delivery Method Room Air 06/26/25 07:54 BMI result Body Mass Index 23.5 Tobacco/Smoking Status: Tobacco use Status Tobacco use date assessed 06/26/25 06/26/25 07:52 Patient Tobacco Use Status Never used Tobacco 06/26/25 07:52 Tobacco use type Cigarette 06/26/25 07:52 e-Cigarette/Vaping Use Never Used 06/26/25 08:01 Depression Screening Interpretation: Negative Thrive Assessment: Date of Thrive Assessment Date Thrive assessed 06/26/25 06/26/25 07:52 Coding Level of Care Code New Pt Prev Care 18-39yr(52022 Diagnoses Hypercholesteremia E78.00 MDD (major depressive disorder), recurrent severe, without psychosis F33.2 Annual physical exam Z00.00 Additional Codes PHQ-9 - 70445 - PHQ-9 Billing: Yes ([id number]) ABRAN-7 Assessment Billing - ABRAN-7 Assessment Tool: ABRAN-7 Assessment 45533 ([id number]) Assessment & Plan Assessment & Plan (1) Hypercholesteremia: Comment: - The patient has elevated total cholesterol (257 mg/dL) and LDL (143 mg/dL) and is concerned due to her brother's history of a myocardial infarction at age 35 with elevated lipoprotein (a). - Plan to order a lipoprotein (a) level. - Advised patient to focus on a healthy diet. - A referral to cardiology may be considered depending on the results. Code(s): E78.00 - Pure hypercholesterolemia, unspecified Category: Medical (2) MDD (major depressive disorder), recurrent severe, without psychosis: Comment: - The patient's mood is stable and improved following medication adjustments in a recent partial hospitalization program. - She is on aripiprazole, Spravato, and Concerta. - She may need a new psychiatrist due to an insurance change. - A referral will be placed to in-house psychiatry for continuity of care. Code(s): F33.2 - Major depressive disorder, recurrent severe without psychotic features Category: Medical (3) Annual physical exam: Comment: - The patient is a 34-year-old female establishing care. - She is due for a Pap smear in 3 years. - Due to her father's history of early-onset colon cancer, she underwent a colonoscopy in late 2023 and is due for her next one in 4 years. - Will request records from her previous colonoscopy. - She will continue her current medications, including continuous oral contraceptives. - The patient was advised to stay up-to-date on COVID and flu vaccines and to continue eating a healthy diet. Code(s): Z00.00 - Encounter for general adult medical examination without abnormal findings Category: Medical Plan: Health Maintenance: - This visit served as an annual physical examination. - Colon cancer screening: The patient had a colonoscopy in late 2023 due to a family history of early-onset colon cancer (father in his 40s). The recommended follow-up is in 5 years. A referral to GI will be placed, and prior records requested. - Cervical cancer screening: Last Pap smear with HPV testing was 2 years ago and results were normal. Next screening is due in 3 years. - Cardiovascular risk: The patient has hypercholesterolemia (Total: 257 mg/dL, LDL: 143 mg/dL) and a family history of premature NH in her brother. A lipoprotein (a) level will be checked. - Vaccinations: Advised to remain current on COVID and flu immunizations. - Healthy lifestyle: Advised to continue eating a healthy diet. Patient was informed and verbally consented to the use of an ambient scribe for clinic note documentation during this visit. Vital signs reviewed. Comprehensive history, review of systems, and physical exam completed. Medications, allergies, and problem list reviewed and updated. Counseling provided on nutrition, regular exercise, sleep hygiene, and moderation of alcohol use. Discussed age-appropriate screenings (mammogram, colonoscopy, Pap, bone density) and immunizations (flu, COVID, shingles, Tdap). Screened for depression, fall risk, and home safety; no current concerns. Discussed stress management, dental and vision care, and importance of ongoing preventive follow-up. Routine labs ordered for metabolic and lipid screening. Patient educated on healthy lifestyle and agrees with the plan. Plan I have reviewed the patient's medical and family history, medications, and recent lab results. We discussed her elevated cholesterol levels in the context of her family history of premature heart disease. I explained that while her LDL is high, it is not in the range for familial hypercholesterolemia, but we will check a lipoprotein (a) level given her brother's history. I advised that diet modification is the most important first step for management. We also discussed her psychiatric care. She feels her current medications are working well, and I have placed a referral to our psychiatry department to ensure continuity of care due to her insurance changes. I will place a referral for GI follow-up for colon cancer screening and will request records of her recent colonoscopy. I confirmed she is up to date with her cervical cancer screening. Overall, I reassured her that she appears very healthy. Orders: Orders Lipoprotein A Today Guero Sebastian MD Z82.49 - Family history of ischemic heart disease and other diseases of the circulatory system Referrals Psychiatry Referral Guero Sebastian MD F33.2 - Major depressive disorder, recurrent severe without psychotic features, F41.3 - Other mixed anxiety disorders, F90.9 - Attention-deficit hyperactivity disorder, unspecified type Medications: Changed From aripiprazole 2 mg PO BEDTIME 30 tabs 0RF as directed To aripiprazole Take 1 1/2 pills by mouth before bed 2 mg PO BEDTIME Renetta Guadarrama MD Discontinued gabapentin Discontinued Reason: Patient Completed Course 100 mg PO BID PRN 30 caps 0RF anxiety, sleep aripiprazole (Abilify) Discontinued Reason: Patient Completed Course 5 mg PO QAM 30 tabs 0RF as directed Patient Instructions: - Please go to the lab at your convenience to have a blood test for lipoprotein (a). - Continue to focus on eating a healthy diet to help manage your cholesterol. - Continue taking all your current medications as prescribed. - A referral has been sent to our hospital's psychiatry department. They will contact you to set up an appointment. - We will help you get set up with our gastroenterology (GI) department for your long-term colon cancer screening. - Please help us get the records from your recent colonoscopy so we have them in your chart. - Keep up to date with your COVID and flu shots.
[2025-06-26 07:54] VITALS: BP 118/54; PULSE 89; RESP 18; TEMP 36.7; O2SAT 98; BMI 23.5
== END 2025-06-26 08:20 | disposition home or self-care (01) ==
PROVIDERS: PCP Student in an Organized Health Care Education/Training Program; Visit Provider Student in an Organized Health Care Education/Training Program
DX: Z00.00 Encounter for general adult medical examination without abnormal findings (principal); E78.00 Pure hypercholesterolemia, unspecified; F33.2 Major depressive disorder, recurrent severe without psychotic features

== ENCOUNTER → 2025-06-26 07:46 | Outpatient (BNVA) | payer OTHER, SELFPAY | PROVIDERS: Visit Provider Student in an Organized Health Care Education/Training Program | DX: Z00.00 Encounter for general adult medical examination without abnormal findings (principal); F33.2 Major depressive disorder, recurrent severe without psychotic features; F41.3 Other mixed anxiety disorders; F90.9 Attention-deficit hyperactivity disorder, unspecified type; E78.00 Pure hypercholesterolemia, unspecified; Z80.0 Family history of malignant neoplasm of digestive organs; Z82.49 Family history of ischemic heart disease and other diseases of the circulatory system; Z76.89 Persons encountering health services in other specified circumstances; Z90.13 Acquired absence of bilateral breasts and nipples; Z13.31 Encounter for screening for depression; Z13.39 Encounter for screening examination for other mental health and behavioral disorders | CPT/HCPCS: 96127 ==